=== PATIENT | male | born 1945 | race Caucasian/White ===

== ENCOUNTER 2021-02-01 10:32 | Outpatient (CLI) | payer BC, MEDICARE, SELFPAY ==
--- NOTE | ~2021-02-01 | XR_ITS ---
EXAMINATION: XR knee RT 3V DATE: 02/01/2021 11:13 INDICATION: Acute onset right knee pain TECHNIQUE: . Bearing AP, lateral and sunrise views of the right knee were obtained. COMPARISON: None. FINDINGS: Alignment is normal. No fracture. Subtle chondrocalcinosis in both the medial and lateral compartmen ts. There is mild joint space narrowing in the medial and patellofemoral compartments, both with smal l marginal osteophytes. Joint spaces in the medial and patellofemoral compartments are normal. Degene rative loose osteochondral body in the recess posterior to the intercondylar notch. Small right knee joint effusion. Enthesopathic ossicles in the distal quadriceps tendon. Few tiny arthroscopic calcifi cation along the popliteal artery. Soft tissues are unremarkable. IMPRESSION: 1. Chondrocalcinosis and mild medial and patellofemoral osteoarthritis. Reviewed, dictated and finalized at location A.
== END 2021-02-01 10:33 | disposition home or self-care (01) ==
LOC: ANHIMG 10:58
PROVIDERS: PCP Family Medicine; Visit Provider Nurse Practitioner Family
DX: M17.11 Unilateral primary osteoarthritis, right knee (principal)
CPT/HCPCS: 73562

== ENCOUNTER 2025-01-13 00:25 | Emergency (ER) | payer MEDICARE, SELFPAY ==
--- OUTSIDE RECORDS SUMMARY | 2008-12-07 19:00 | XMS_ITS | Continuity of Care Document ---
Author Organization [facility] Address [address] [place] [address] Phone Care Team Providers Care Technical Operations Vice President Name Role Phone Deonte Mahoney MD Unavailable Unavailable Advance Directives Directive Yes / No Effective Date File Name No Information Encounters Encounter Description Practice Location Reason(s) For Visit Diagnoses Date Provider Providers Copied on Encounter [facility], [address], [place], [place], [address], tel:[phone] [facility] No Information Sep-0 8-200 9 Trame Saint Anthony. [address] [facility], [address], [place], [place], [address] . tel:[phone] [employer], [address], [place], [place], [address], [place] tel:[phone] [facility] DEEP PHLEBITIS-LEG NECCELLULITIS OF ARMJOINT PAIN-SHLDER Apr-0 6-200 4 Trame Deonte. [address] [facility], [address], [place], [place], [address] . tel:[phone] [employer], [address], [place], [place], [address], [place] tel:[phone] [facility] PULM EMBOL/INFARCT NEC Oct-2 8-200 3 Trame Deonte. [address] [facility], [address], [place], [place], [address] . tel:[phone] [employer], [address], [place], [place], [address], tel:[phone] [facility] ROUTINE MEDICAL EXAM Edd-2 0-200 3 Trame [facility]. [address] [facility] [address], [place], [address] . tel: [phone] [facility], [address], [place], [place], [address], tel:[phone] [facility] CHRONIC SINUSITIS NOS 3 Maru Clemons. [address] [facility] [address], [place], [address] . tel: [phone] Family History Family Member Type Diagnosis Age At Onset No Information Payers Payer name Insurance type Covered alliance party ID Authoriza tion(s) No Information Social History Type Description Quantity Date Captured Comments Sex Male Smoking Status No Information Chief Complaint And Reason For Visit No Information Reason For Referral Reason For Referral No Information History Of Present Illness Encounter Date Complaint History Of Prese nt Illness No Information Functional Status Date Functional Assessmen t No Information Instructions Date Instruction Additional Infor mation No Information Assessments Type Assessment Date No Information Patient Care Teams Name Effective Dates (start - stop) Status Members No Information
--- OUTSIDE RECORDS SUMMARY | 2008-12-07 19:00 | XMS_ITS | Continuity of Care Document ---
Author Organization [facility] Address [address] [place] [address] Phone Care Team Providers Care Handle Rounder Operator Name Role Phone Deonte Mahoney MD Unavailable Unavailable Advance Directives Directive Yes / No Effective Date File Name No Information Encounters Encounter Description Practice Location Reason(s) For Visit Diagnoses Date Provider Providers Copied on Encounter [facility], [address], [place], [place], [address], tel:[phone] [facility] No Information Sep-0 8-200 9 Trame Lucinda. [address] [facility], [address], [place], [place], [address] . tel:[phone] [employer], [address], [place], [place], [address], [place] tel:[phone] [facility] DEEP PHLEBITIS-LEG NECCELLULITIS OF ARMJOINT PAIN-SHLDER Apr-0 6-200 4 Trame Deonte. [address] [facility], [address], [place], [place], [address] . tel:[phone] [employer], [address], [place], [place], [address], [place] tel:[phone] [facility] PULM EMBOL/INFARCT NEC Oct-2 8-200 3 Trame Deonte. [address] [facility], [address], [place], [place], [address] . tel:[phone] [employer], [address], [place], [place], [address], tel:[phone] [facility] ROUTINE MEDICAL EXAM Edd-2 0-200 3 Trame Lucinda. [address] [facility] [address], [place], [address] . tel: [phone] [facility], [address], [place], [place], [address], tel:[phone] [facility] CHRONIC SINUSITIS NOS 3 Maru Clemons. [address] [address], [place], [address] . tel: [phone] Family History Family Member Type Diagnosis Age At Onset No Information Payers Payer name Insurance type Covered constitution party ID Authoriza tion(s) No Information Social [...]
[2025-01-13 00:32] VITALS: BP 193/92; PULSE 71; RESP 18; TEMP 36.4; O2SAT 97
--- OUTSIDE RECORDS SUMMARY | 2025-01-13 00:33 | XMS_ITS | Clinical Summary ---
Author Organization [facility] Address [address] [place] [address] Care Team Providers Care Computer Peripheral Equipment Operator Name Role Phone Yanick Zee DO Primary Care Provider + Allergies No known active allergies Medications diphenhydrAMINE -APAP (TYLENOL PM) 25-500 MG Tab tablet Take 1 tablet by mouth nightly as needed for Sleep. Active tamsulosin (FLOMAX) 0.4 MG CapIndications: Benign prostatic hyperplasia with lower urinary tract symptoms, symptom details unspecified TAKE 1 CAPSULE EVERY DAY 90 capsule 3 5 Active traMADol (ULTRAM) 50 MG tabletIndicatio ns:Achilles tendinitis of left lower extremity TAKE 1 TABLET BY MOUTH EVERY 6 HOURS NEEDED 20 tablet 5 Active XARELTO 20 MG Tab tabletIndicatio ns:History of blood clots TAKE 1 TABLET (20 MG TOTAL) BY MOUTH DAILY. 90 tablet 3 5 Active XARELTO 20 MG Tab tabletIndicatio ns:History of blood clots Take 1 tablet (20 mg total) by mouth daily. 90 tablet 5 025 Discontinued Active Problems Problem Noted Date Diagnosed Date Morbid obesity due to excess calories 05/17/2023 Hyperlipidemia, unspecified hyperlipidemia type 05/12/2022 Elevated blood sugar 05/12/2022 History of blood clots 03/28/2022 Erectile dysfunction, unspecified erectile dysfu nction type 03/28/2022 Benign prostatic hyperplasia with lower urinary tract symptoms, symptom details unspecified 03/28/2022 BMI 36.0-36.9,adult 03/28/2022 JACK on CPAP 03/28/2022 Encounters Date Type Department Care Team Description 12/10/2024 Scan [facility] Scanned, [facility] 11/27/2024 Results Follow-Up [facility] [address] [address] Svitlana Drew APNP URINALYSIS, COMPREHENSIVE METABOLIC PANEL 11/25/2024 7:20 AM CDT Laboratory Only [facility] [address] [address] Yanick Zee DO 11/25/2024 Travel 11/12/2024 Scan [facility] INFO SR[facility]CS Scanned, [facility] from Last 3 Months Social History Tobacco Use Types Packs/Day Years Used Date Smoking Tobacco: Never Passive Smoke Exposure: Never Smokeless Tobacco: Never Tobacco Cessation:Counseling Given: No Alcohol Use Standard Drinks/Week Comments Not Currently 0 (1 standard drink = 0.6 oz pur e alcohol) very occasional PHQ-2 Answer Date Recorded Patient Health Questionnaire-2 Score 0 08/13/2024 Sex and Gender Information Value Date Recorded Sex Assigned at Male 05/15/2024 11:08 AM PRIVATE INVESTIGATOR Legal Sex Male 10:34 AM CDT Gender Identity Not on file Sexual Orientation Not on file Last Filed Vital Signs Vital Sign Reading Time Taken Comments Blood Pressure 138/72 08/13/2024 9:32 AM CDT Pulse 62 08/13/2024 9:05 AM CDT Temperature 36.9 C (98.4 F) 08/13/2024 9:05 AM CDT Respiratory Rate 16 08/13/2024 9:05 AM CDT Oxygen Saturation 98% 08/13/2024 9:05 AM CDT Inhaled Oxygen Concentration - - Weight 133.1 kg (293 lb 8 oz) 08/13/2024 9:05 AM CDT Height 193 cm (6' 4) 08/13/2024 9:05 AM CDT Body Mass Index 35.73 08/13/2024 9:05 AM CDT Plan of Treatment Health Maintenance Due Date Last Done Comments Annual Medicare Wellness Visit 02/28/2012 COVID-19 Vaccine (2023-2 5 season) 2024 Influenza Adult (#1) 2024 DTaP, Tdap and Td Vaccines ( 1 - Tdap) 08/13/2025 Postponed from 1966 (Patient Refused) Pneumococcal Vaccine: 50+ Years (1 of 1 - PCV) 08/13/2025 Postponed from 1997 (Patient Refused) RSV Immunization or 60+ Years (1 - 1-dose 75+ series) 08/13/2025 Postponed from 2022 (Patient Refused) Zoster Vaccines (1 of 2) 08/13/2025 Pos tponed from 1997 (Patient Refused) Colorectal Cancer Screening Colonoscopy (10 Years) Discontinued 07/28/2013, 07/28/2013, 07/28/2013 Hepatitis C Completed 03/28/2022 PHQ-2 (Physician [place]) Completed 08/13/2024 Meningococcal B Vaccine Aged Out No l onger eligible based on patient's age to complete this topic Meningococcal Vaccine Aged Out No belia giselle eligible based on patient's age to complete this topic RSV Immunizations Under 20 Months Aged Out No longer eligible b ased on patient's age to complete this topic Procedures Procedure Name Priority Date/Time Associated Diagnosis Comments COLLECTION VENOUS BLOOD VENIPUNCTURE Routine 11/25/2024 7:35 AM CDT Hematuria Elevated liver enzymes Decreased renal function COMPREHENSIVE METABOLIC PANEL Routine 11/25/2024 7:34 AM CDT Elevated liver enzymes Decreased renal function URINALYSIS, AUTO, COMPLETE Routine 11/25/2024 7:34 AM CDT Hematuria HEPATITIS C ANTIBODY Routine 03/28/2022 8:56 AM PRIVATE INVESTIGATOR Annual physical exam Need for hepatitis C screening test COLONOSCOPY GENERIC (SCAN ORDER) 07/28/2013 from Last 3 Months or Most Recently Relevant to Health Maintenance Results * (ABNORMAL) URINALYSIS (11/25/2024 7:34 AM CDT) COLOR (U) YELLOW 11/25/2024 3:24 PM CDT [facility] TRANSPARENCY CLEAR CLEAR 11/25/2024 3:24 PM CDT [facility] SPECIFIC GRAVITY (U) 1.020 1.003 - 1.040 11/25/2024 3:24 PM CDT [facility] U PH 5.5 5.0 - 9.0 11/25/2024 3:24 PM CDT [facility] PROTEIN RANDOM (U) NEGATIVE NEGATIVE 11/25/2024 3:24 PM CDT [facility] GLUCOSE (U) NEGATIVE NEGATIVE 11/25/2024 3:24 PM CDT [facility] KETONES MG/DL (U) NEGATIVE NEGATIVE 11/25/2024 3:24 PM CDT [facility] BILIRUBIN (U) NEGATIVE NEGATIVE 11/25/2024 3:24 PM CDT [facility] BLOOD (U) 1+(A) NEGATIVE 11/25/2024 3:24 PM T [facility] UROBILINOGEN 0.2 0.0 - 2.0 EU/DL 11/25/2024 3:24 PM CDT [facility] NITRITES NEGATIVE NEGATIVE 11/25/2024 3:24 PM T [facility] LEUKOCYTES (U) NEGATIVE NEGATIVE 11/25/2024 3:24 PM CDT [facility] RBC/HPF 0-3 0 - 3 /HPF 11/25/2024 3:24 PM T [facility] WBC/HPF 0-3 0 - 3 /HPF 11/25/2024 3:24 PM T [facility] EPI/HPF 0-3 /HPF 11/25/2024 3:24 PM CDT [facility] BACTERIA (U) NONE SEEN NONE SEEN 11/25/2024 3:24 PM T [facility] URINE SPECIMEN OBTAINED BY CLEAN CATCH PROCEDURE / Unknown 11/25/2024 7:34 AM CDT Svitlana JOHN URINE ORDERABLES Final Resu lt -[facility] [address] [place] [address], * (ABNORMAL) COMPREHENSIVE METABOLIC PANEL (11/25/2024 7:34 AM CDT) SODIUM S/P/B 138 136 - 145 MMOL/L 11/25/2024 3:09 PM CDT -[facility] POTASSIUM S/P/B 4.4 3.5 - 5.1 MMOL/L 11/25/2024 3:09 PM CDT [facility] CHLORIDE S/P/B 102 98 - 107 MMOL/L 11/25/2024 3:09 PM CDT [facility] CO2 25.8 21 - 32 MMOL/L 11/25/2024 3:09 PM CDT [facility] GLUCOSE 94 70 - 99 MG/DL 11/25/2024 3:09 PM CDT [facility] BUN 17 7 - 18 MG/DL 11/25/2024 3:09 PM CDT [facility] CREATININE S/P/B 1.31(H) 0.70 - 1.30 MG/DL 11/25/2024 3:09 PM CDT [facility] CALCIUM S/P/B 9.3 8.4 - 10.5 MG/DL 11/25/2024 3:09 PM CDT -[facility] BILIRUBIN TOTAL S/P/B 0.6 0.2 - 1.0 MG/DL 11/25/2024 3:09 PM CDT [facility] ALKALINE PHOSPHATASE S/P/B 57 45 - 115 U/L 11/25/2024 3:09 PM CDT [facility] AST 34 15 - 37 U/L 11/25/2024 3:09 PM CDT [facility] ALT 56 16 - 63 U/L 11/25/2024 3:09 PM CDT [facility] TOTAL PROTEIN S/P/B 7.3 6.4 - 8.2 G/DL 11/25/2024 3:09 PM CDT [facility] ALBUMIN S/P/B 4.0 3.4 - 5.0 G/DL 11/25/2024 3:09 PM CDT [facility] ANION GAP 10.2 5 - 15 MMOL/L 11/25/2024 3:09 PM CDT [facility] Comment:REFERENCE RANGE NOT ESTABLISHED OSMOLALITY (CALC) 287 MOSM/KG 025 3:09 PM CDT [facility] Comment:REFERENCE RANGE NOT ESTABLISHED GFR ESTIMATE 56(L) >90 ML/MIN/1. 73 M2 11/25/2024 3:09 PM CDT [facility] GFR NOTES GFR REFERENCE S: 11/25/2024 3:09 PM CDT [facility] Comment: THE ESTIMATED GFR IS CALCULATED USING THE 2020 CKD-EPI EQUATION. THE FOLLOWING CATEGORIES FOR GRADING RENAL FUNCTION ARE RECOMMENDED BY THE INTERNATIONAL SOCIETY OF NEPHROLOGY (KDIGO 2012 CLINICAL PRACTICE GUIDELINE). G1,NORMAL OR HIGH: >89 ml/min/1.73 m2 G2,MILDLY DECREASED: 60-89 ml/min/1.73 m2 G3A,MILDLY TO MODERATELY DECREASED: 45-59 ml/min/1.73 m2 G3B,MODERATELY TO SEVERELY DECREASED: 30-44 ml/min/1.73 m2 G4,SEVERELY DECREASED: 15-29 ml/min/1.73 m2 G5,KIDNEY FAILURE: <15 ml/min/1.73 m2 11/25/2024 7:34 AM CDT us Svitlana JOHN LABORATORY Final Resul t [facility] [place] [address] [place] [address], * HEPATITIS C ANTIBODY (03/28/2022 8:56 AM PRIVATE INVESTIGATOR) HEPATITIS C AB NON-REACTI VE NON-REACT MARIAH 03/28/2022 10:04 PM PRIVATE INVESTIGATOR [facility] Comment: ANTIBODIES TO HCV NOT DETECTED. DOES NOT EXCLUDE THE POSSIBILITY OF EXPOSURE TO HCV. 03/28/2022 8:56 AM PRIVATE INVESTIGATOR us Yanick Zee DO LABORATORY Final Re sult [facility] [address] [place] [address], [place] [phone] [id number] * COLONOSCOPY GENERIC (07/28/2013) 07/28/2013 us Doc [facility] Scanned SCANNING Final Resu lt from Last 3 Months or Most Recently Relevant to Health Maintenance Insurance MEDICARE Care Teams Computer Peripheral Equipment Operator Relationship Specialty Start Date End Date Yanick Zee DO [address] [place], [place] [phone] PCP - General FAMILY PRACTICE 01/26/22
--- OUTSIDE RECORDS SUMMARY | 2025-01-13 00:33 | XMS_ITS | Encounter Summary ---
Author Organization [facility] Address [address] [place] [address] Care Team Providers Care Nursery Teacher Name Role Phone Yanick Zee DO Primary Care Provider + Encounter Details Date Type Department Care Team (Latest Contact Info) Description 11/27/2024 Results Follow-Up [facility] Family & Internal Medicine [facility] [address] [place] [address] Svitlana Drew APNP [address] [place] [address] URINALYSIS, COMPREHENSIVE METABOLIC PANEL Social History Tobacco Use Types Packs/Day Years Used Date Smoking Tobacco: Never Passive Smoke Exposure: Never Smokeless Tobacco: Never Alcohol Use Standard Drinks/Week Comments Not Currently 0 (1 standard drink = 0.6 oz pur e alcohol) very occasional PHQ-2 Answer Date Recorded Patient Health Questionnaire-2 Score 0 08/13/2024 Sex and Gender Information Value Date Recorded Sex Assigned at Male 05/15/2024 11:08 AM SASH MAKER Legal Sex Male 10:34 AM CDT Gender Identity Not on file Sexual Orientation Not on file documented as of this encounter Progress Notes * Yanick Zee DO - 11/27/2024 9:31 AM CDT Liver enzymes improved but blood is still noted in urine. Please refer to urology. Can recheck labswith annual labs. documented in this encounter Plan of Treatment Not on file documented as of this encounter Visit Diagnoses Not on filedocumented in this encounter Care Teams Nursery Teacher Relationship Specialty Start Date End Date Yanick Zee DO [address] [place] [address] PCP - General FAMILY PRACTICE 01/26/22 documented as of this encounter
--- OUTSIDE RECORDS SUMMARY | 2025-01-13 00:33 | XMS_ITS | Clinical Summary ---
Author Organization [facility] Address [address] [place] [address] Care Team Providers Care Manager Distribution Center Name Role Phone Yanick Zee Primary Care Provide r Allergies No known active allergies Medications Xarelto 20 mg tablet Take 1 tablet (20 mg total) by mouth daily 01/09/2024 Active tamsulosin (FLOMAX) 0.4 mg extended release capsule Take 1 capsule (0.4 mg total) by mouth daily 12/19/2023 Active diphenhydrAMINE -acetaminophen (TYLENOL PM) 25-500 mg tablet Take 1 tablet by mouth nightly as needed Active Active Problems Problem Noted Date Diagnosed Date Morbid obesity due to excess calories 05/17/2023 Elevated blood sugar 05/12/2022 Hyperlipidemia 05/12/2022 Benign prostatic hyperplasia with lower urinary tract symptoms 03/28/2022 Erectile dysfunction 03/28/2022 JACK on CPAP 03/28/2022 Medical History Medical History Date Comments Joint pain Muscle tenderness Joint swelling Family History Medical History Relation Name Comments Blood Clot Brother Relation Name Status Comments Brother Father Mother Social History Tobacco Use Types Packs/Day Years Used Date Smoking Tobacco: Never Smokeless Tobacco: Never Tobacco Cessation:Counseling Given: Not Answered AUDIT-C Answer Date Recorded Q1: How often do you have a drink containing alc ohol? 2-3 times a week 02/19/2024 Q2: How many drinks containi ng alcohol do you have on a typical day when you are drinking? 1 or 2 02/19/2024 Q3: How often do you have si x or more drinks on one occasion? Never 02/19/2024 PHQ-2 Answer Date Recorded PHQ-2 Total Score (If total score is 3 or more points, staff should administer the PHQ-9) 0 02/19/2024 Sex and Gender Information Value Date Recorded Sex Assigned at Not on file Legal Sex Male 5:35 PM PURSE FRAMER Gender Identity Not on file Sexual Orientation Not on file Obstetrics History Last Filed Vital Signs Vital Sign Reading Time Taken Comments Blood Pressure 142/84 02/19/2024 12:51 PM PURSE FRAMER Pulse 60 02/19/2024 12:51 PM PURSE FRAMER Temperature 36.8 C (98.3 F) 02/19/2024 12:51 PM PURSE FRAMER Respiratory Rate - - Oxygen Saturation 96% 02/19/2024 12: 51 PM PURSE FRAMER Inhaled Oxygen Concentration - - Weight 133.2 kg (293 lb 9.6 oz) 024 12:51 PM PURSE FRAMER Height - - Body Mass Index - - Plan of Treatment Health Maintenance Due Date Last Done Comments Fall Risk Assessment 1945 Hepatitis C Screening 1945 DTaP/Tdap/Td Vaccine (1 - Tdap) 1958 Hepatitis B Screening 1965 Pneumococcal vaccine 65+ (1 of 1 - PCV) 1997 Zoster Vaccine (1 of 2) 1997 Well Visit 65+ 02/28/2012 Influenza Vaccine (#1) 2024 Depression Screening 02/18/2025 02/19/2024 Insurance [employer] ACCESS MEDICARE [employer] CHOICE MEDICARE PPO Care Teams Manager Distribution Center Relationship Specialty Start Date End Date Yanick Zee DO [address] [place] [id number] PCP - General Family Medicine 06/08/23
--- NOTE | 2025-01-13 00:35 | PC.NURSE ---
Pts dressing from home removed on arrival, noted large amt of blood loss, area of Lt inner ankle still bleeding when dressing removed, direct pressure applied to vein site, tourniquet applied and CAT applied to help slow bleeding.
--- NOTE | 2025-01-13 00:38 | ED_ITS ---
HPI - Skin/Abscess/Foreign Bdy General Chief complaint: Wound/Laceration Stated complaint: bleeding foot Time Seen by Provider: 01/13/25 00:37 Source: patient Mode of arrival: ambulatory Limitations: no limitations History of Present Illness HPI narrative: Patient is 79-year-old male with a arterial bleed in his left ankle area medial aspect tonight. Patient is on Xarelto for a prior DVT. Patient presents with a pressure dressing. Patient was picking at a scab and the bleed started and would not stop bleeding. complaint: other (Scab on the left medial ankle the size of a pencil eraser) Onset (ago): hour(s) (Three) Tetanus up to date: unsure Location: LLE Severity: moderate Severity scale (1-10): 3 Quality: aching Pain Consistency: constant Relieving factors: other (Pressure dressing) Exacerbating factors: palpation and movement Context: other (Patient was picking at a scab on his ankle of the left medial aspect and a arterial bleeder started to start bleeding while on Xarelto) Associated symptoms: denies other symptoms Treatments prior to arrival: bandages (Pressure dressing) Related Data Allergies Allergy/AdvReac Type Severity Reaction Status Date / Time No Known Allergies Allergy Verified 01/13/25 00:54 Review of Systems 2 Review of Systems: All systems reviewed & are unremarkable except as noted in HPI and below Constitutional: Constitutional: Reports no additional constitutional complaints Eyes: Eyes: Reports no additional eye complaints ENT: Reports system reviewed and no additional complaints, except as documented Cardiovascular: Cardiovascular: Reports no additional cardiovascular complaints Respiratory: Respiratory: Reports no additional respiratory complaints Gastrointestinal: Gastrointestinal: Reports no additional gastrointestinal complaints Genitourinary: Genitourinary: Reports no additional male genitourinary complaints Musculoskeletal: Musculoskeletal: Reports no additional musculoskeletal complaints Integumentary/Breasts: Skin/Breast: Reports system reviewed and no additional complaints, except as docu Neurologic: Reports system reviewed and no additional complaints, except as documented Psychiatric: Psychiatric: Reports no additional psychiatric complaints Endocrine: Endocrine: Reports no additional endocrine complaints Hematologic/Lymphatic: Hematologic/Lymphatic: Reports no additional hematologic/lymphatic complaints Allergic/Immunologic: Allergic/Immunologic: Reports no additional allergic/immunologic complaints PMFSH Past Medical History Medical History Polymyalgia rheumatica (~04/2021) Hemorrhage HLD (hyperlipidemia) Asthma Hearing loss Pulmonary embolism Effusion, right knee Right knee DJD Right knee pain Obesity Obstructive sleep apnea H/O deep venous thrombosis IFG (impaired fasting glucose) CKD (chronic kidney disease), stage III Low kidney function Elevated liver enzymes Mixed hyperlipidemia Elevated blood pressure reading Surgical History Surgical History History of back surgery per patient questionnaire H/O shoulder surgery Rotator Cuff 2004 per patient questionnaire Family History Family History Mother Patient's mother is , Onset Age: 83 Father Patient's father is , Onset Age: 89 Sibling Family history of sleep apnea Other Arthritis HLD (hyperlipidemia) Heart disease Social History Social History Smoking status: Never smoker Second hand tobacco smoke exposure: No Alcohol intake: never Substance use: never Living arrangements: with family Occupation/Education: retired Gender identity (if verbalized by the patient): Male Sexual Orientation (if Verbalized by the Patient): Straight or Heterosexual Exam 2 Const: General: healthy appearing Nutritional Appearance: well nourished Orientation/consciousness: patient oriented x3 HENMT: Head: normal to inspection Ears: external ears normal F kirill/Nose/Sinus: Normal external nose present Eyes: Conjunctivae: conjunctivae normal Pupils: Equal, round and reactive pupils present EOM: EOMs intact bilaterally Neck: Neck: normal visual inspection Chest: Chest palpation & inspection: normal inspection of the chest Resp: Effort & Inspection: normal respiratory effort and not labored A uscultation: clear to auscultation bilaterally and no crackles Cardio: Rate: regular rate Rhythm: regular rhythm Heart sounds: no murmurs GI: Inspection: non-distended Auscultation: normal bowel sounds : General: Yes bladder normal to palpation Back/Spine/Pelvis: Back: no CVA tenderness Skin: General skin exam: normal color Rashes: no rashes Wounds: no wounds Other: Patient proceeded to get somewhat pale after attempting to stop bleeding for 10- 15 minutes in the emergency room Neuro: General: patient oriented x3, moves all extremities and no meningeal signs Extrem: General: abnormal to inspection (Arterial bleeding of the left ankle medial aspect briskly) and no clubbing, cyanosis or edema Psych: Mental Status: mental status grossly normal Affect: normal affect Attitude: cooperative Course Vital Signs Vital signs: Vital Signs Temperature 36.4 C 01/13/25 00:32 Pulse Rate 71 01/13/25 00:32 Respiratory Rate 18 01/13/25 00:32 Blood Pressure 193/92 H 01/13/25 00:32 Pulse Oximetry 97 01/13/25 00:32 Oxygen Delivery Room Air 01/13/25 00:32 Temperature 36.4 C 01/13/25 00:32 Pulse Rate 71 01/13/25 03:09 Respiratory Rate 20 01/13/25 03:09 Blood Pressure 140/88 01/13/25 03:09 Pulse Oximetry 94 01/13/25 03:09 Oxygen Delivery Room Air 01/13/25 03:09 Procedures Other Procedure Procedure 1: Other Procedure: Arterial bleed hemostasis: Area cleaned with chlorhexidine, tourniquet placed on the left lower extremity, heat cautery attempted, silver nitrate attempted multiple times, suture ligation attempted with better results and decreased arterial bleed to minimal bleeding to no bleeding; patient tolerated procedures well and no complications MDM - Skin/Abscess/Foreign Bdy MDM Narrative Medical decision making narrative: Patient is a 79-year-old male with a arterial bleed of the left lower extremity. We will tourniquet and an attempt to close or ligate this vessel for hemostasis. We will consult with Trauma Services and vascular surgery. Check H&H. Check coags. I discussed the case with vascular surgery and they said continue with stitching until the bleeding stops and hold his Xarelto for 1-2 days and have it followed up for review in 1-2 days. Lab Data Attestation: I reviewed the patient's lab results. 01/13/25 01:45 Labs: Lab Results 01/13/25 Range/Units 01:45 WBC 6.5 (4.8-10.8) K/mm3 RBC 4.29 L (4.70-6.10) M/mm3 Hgb 13.0 (12.4-15.3) g/dL Hct 39.6 (37.0-46.0) % MCV 92.3 (78.0-102.0) fL MCH 30.3 (27.0-31.0) pg MCHC 32.8 (32-36) g/dL RDW 13.2 (11.6-14.4) % Plt Count 181 (150-420) K/mm3 MPV 9.6 (8.7-11.0) fl Immature Gran % (Auto) 1.4 H (0.0-0.0) % Neut % (Auto) 58.9 (50.0-70.0) % Lymph % (Auto) 25.6 (18.0-42.0) % [place] % (Auto) 10.0 (2.0-11.0) % Eos % (Auto) 3.5 (1.0-6.0) % Baso % (Auto) 0.6 (0.0-1.0) % Lymph # (Auto) 1.67 (1.10-4.50) K/mm3 [place] # (Auto) 0.65 (0.10-0.90) K/mm3 Eos # (Auto) 0.23 (0.02-0.50) K/mm3 Baso # (Auto) 0.04 (0.00-0.10) K/mm3 Abs Immat Gran (auto) 0.09 H (0.00-0.00) K/mm3 Absolute Neuts (auto) 3.85 (1.70-7.20) K/mm3 Absolute Nucleated RBC 0.00 (0.00-0.00) K/mm3 Nucleated RBC % 0.0 (0-0.0) % PT 11.9 (9.50-12.1) Seconds INR 1.1 APTT 31.1 H (23.9-30.70) Sec Critical Care Time Critical Care Time Critical Care Time: Yes Total Critical Care Time: 40 Discharge Plan Discharge Clinical Impression: Arterial hemorrhage Patient Disposition: Home Condition: Stable Instructions: Antibiotic Form Additional Instructions: Please follow-up with the primary doctor in the next week. Change dressing in 24 hours. Then you can change them every day. Stitches need to be removed in 10 days. Come back to the ER with any further bleeding. Hold Xarelto for 2 days. Patient Language: Kosovan Prescriptions: No Action Xarelto 20 mg tablet 20 mg PO DAILY Qty: 90 2RF Rx Instructions: TAKE 1 BY MOUTH with evening meal prednisone 5 mg tablet 5 mg PO TID Qty: 90 1RF Follow-up/Referrals: Saadia,DO Yanick [Primary Care Provider] Time of Disposition: 02:51
[2025-01-13] MEDS: LIDOCAINE 1% LOCAL INJ 10 ML VIAL 5 ML INFILTRATE (00:40)
--- OUTSIDE RECORDS SUMMARY | 2025-01-13 01:17 | XMS_ITS | Encounter Summary ---
Author Organization [facility] Address [address] [place] [address] Care Team Providers Care Accounts Receivable Processor Name Role Phone Yanick Zee DO Primary Care Provider + Encounter Details Date Type Department Care Team (Latest Contact Info) Description 11/27/2024 Results Follow-Up [facility] Family & Internal Medicine [facility] [address] [place] [address] Svitlana Drew APNP [address] [place] [address] URINALYSIS, COMPREHENSIVE METABOLIC PANEL Social [...] Sex Assigned at Male 05/15/2024 11:08 AM WEDDING MAKEUP ARTIST Legal Sex Male 10:34 AM CDT Gender [...] on filedocumented in this encounter Care Teams Accounts Receivable Processor Relationship Specialty Start Date End Date Yanick Zee DO [address] [place] [id number] PCP - General FAMILY PRACTICE 01/26/22 documented as of this encounter
--- OUTSIDE RECORDS SUMMARY | 2025-01-13 01:17 | XMS_ITS | Clinical Summary ---
Author Organization [facility] Address [address] [place] [address] Care Team Providers Care Account Management Assistant Name Role Phone Yanick Zee Primary Care [...] on file Legal Sex Male 5:35 PM WHEELCHAIR VAN OPERATOR FIRST RESPONDER Gender Identity Not on file Sexual Orientation Not on file Obstetrics History Last Filed Vital Signs Vital Sign Reading Time Taken Comments Blood Pressure 142/84 02/19/2024 12:51 PM WHEELCHAIR VAN OPERATOR FIRST RESPONDER Pulse 60 02/19/2024 12:51 PM WHEELCHAIR VAN OPERATOR FIRST RESPONDER Temperature 36.8 C (98.3 F) 02/19/2024 12:51 PM WHEELCHAIR VAN OPERATOR FIRST RESPONDER Respiratory Rate - - Oxygen Saturation 96% 02/19/2024 12: 51 PM WHEELCHAIR VAN OPERATOR FIRST RESPONDER Inhaled Oxygen Concentration - - Weight 133.2 kg (293 lb 9.6 oz) 024 12:51 PM WHEELCHAIR VAN OPERATOR FIRST RESPONDER Height - - Body Mass Index - [...] (#1) 2024 Depression Screening 02/18/2025 02/19/2024 Insurance [employer] ACCESS MEDICARE [employer] CHOICE MEDICARE PPO Care Teams Account Management Assistant Relationship Specialty Start Date End Date Yanick Zee DO [address] [place] [id number] PCP - General Family Medicine 06/08/23
--- OUTSIDE RECORDS SUMMARY | 2025-01-13 01:17 | XMS_ITS | Clinical Summary ---
Author Organization [facility] Address [address] [place] [address] Care Team Providers Care Auger Machine Offbearer Name Role Phone Yanick Zee DO Primary [...] Scanned, Doc Med Group 11/27/2024 Results Follow-Up [facility] Family & Internal Medicine [address] [address] Svitlana Drew APNP URINALYSIS, COMPREHENSIVE METABOLIC PANEL 11/25/2024 7:20 AM CDT Laboratory Only [facility] Family & Internal Medicine [address] [phone] Yanick Zee DO 11/25/2024 Travel 11/12/2024 Scan [...] Sex Assigned at Male 05/15/2024 11:08 AM SPACE SCHEDULER Legal Sex Male 10:34 AM CDT Gender [...] 07/28/2013 Hepatitis C Completed 03/28/2022 PHQ-2 (Physician [place]) Completed 08/13/2024 Meningococcal B Vaccine Aged Out [...] HEPATITIS C ANTIBODY Routine 03/28/2022 8:56 AM SPACE SCHEDULER Annual physical exam Need for hepatitis C screening test COLONOSCOPY GENERIC (SCAN ORDER) 07/28/2013 from Last 3 Months or Most Recently Relevant to Health Maintenance Results * (ABNORMAL) URINALYSIS (11/25/2024 7:34 AM CDT) COLOR (U) YELLOW 11/25/2024 3:24 PM CDT [facility] TRANSPARENCY CLEAR CLEAR 11/25/2024 3:24 PM CDT [facility] SPECIFIC GRAVITY (U) 1.020 1.003 - 1.040 11/25/2024 3:24 PM CDT [facility] U PH 5.5 5.0 - 9.0 11/25/2024 3:24 PM CDT [facility] PROTEIN RANDOM (U) NEGATIVE NEGATIVE 11/25/2024 3:24 PM CDT [facility] GLUCOSE (U) NEGATIVE NEGATIVE 11/25/2024 3:24 PM CDT [facility] KETONES MG/DL (U) NEGATIVE NEGATIVE 11/25/2024 3:24 PM CDT [facility] BILIRUBIN (U) NEGATIVE NEGATIVE 11/25/2024 3:24 PM CDT [facility] BLOOD (U) 1+(A) NEGATIVE 11/25/2024 3:24 PM T [facility] UROBILINOGEN 0.2 0.0 - 2.0 EU/DL 11/25/2024 3:24 PM CDT [facility] NITRITES NEGATIVE NEGATIVE 11/25/2024 3:24 PM T [facility] LEUKOCYTES (U) NEGATIVE NEGATIVE 11/25/2024 3:24 PM CDT [facility] RBC/HPF 0-3 0 - 3 /HPF 11/25/2024 3:24 PM T [facility] WBC/HPF 0-3 0 - 3 /HPF 11/25/2024 3:24 PM T [facility] EPI/HPF 0-3 /HPF 11/25/2024 3:24 PM CDT [facility] BACTERIA (U) NONE SEEN NONE SEEN 11/25/2024 3:24 PM T [facility] URINE SPECIMEN OBTAINED BY CLEAN CATCH PROCEDURE / Unknown 11/25/2024 7:34 AM CDT Svitlana JOHN URINE ORDERABLES Final Resu lt -[facility] [address] [place] [address], * (ABNORMAL) COMPREHENSIVE METABOLIC PANEL (11/25/2024 7:34 AM CDT) SODIUM S/P/B 138 136 - 145 MMOL/L 11/25/2024 3:09 PM CDT -[facility] POTASSIUM S/P/B 4.4 3.5 - 5.1 MMOL/L 11/25/2024 3:09 PM CDT [facility] CHLORIDE S/P/B 102 98 - 107 MMOL/L 11/25/2024 3:09 PM CDT [facility] CO2 25.8 21 - 32 MMOL/L 11/25/2024 3:09 PM CDT [facility] GLUCOSE 94 70 - 99 MG/DL 11/25/2024 3:09 PM CDT [facility] BUN 17 7 - 18 MG/DL 11/25/2024 3:09 PM CDT [facility] CREATININE S/P/B 1.31(H) 0.70 - 1.30 MG/DL 11/25/2024 3:09 PM CDT [facility] CALCIUM S/P/B 9.3 8.4 - 10.5 MG/DL 11/25/2024 3:09 PM CDT [facility] BILIRUBIN TOTAL S/P/B 0.6 0.2 - 1.0 MG/DL 11/25/2024 3:09 PM CDT [facility] ALKALINE PHOSPHATASE S/P/B 57 45 - 115 U/L 11/25/2024 3:09 PM CDT [facility] AST 34 15 - 37 U/L 11/25/2024 3:09 PM CDT [facility] ALT 56 16 - 63 U/L 11/25/2024 3:09 PM CDT [facility] TOTAL PROTEIN S/P/B 7.3 6.4 - 8.2 G/DL 11/25/2024 3:09 PM CDT [facility] ALBUMIN S/P/B 4.0 3.4 - 5.0 G/DL 11/25/2024 3:09 PM CDT [facility] ANION GAP 10.2 5 - 15 MMOL/L 11/25/2024 3:09 PM CDT [facility] Comment:REFERENCE RANGE NOT ESTABLISHED OSMOLALITY (CALC) 287 MOSM/KG 025 3:09 PM CDT [facility] Comment:REFERENCE RANGE NOT ESTABLISHED GFR ESTIMATE 56(L) >90 ML/MIN/1. 73 M2 11/25/2024 3:09 PM CDT [facility] GFR NOTES GFR REFERENCE S: 11/25/2024 3:09 PM CDT [facility] Comment: THE ESTIMATED GFR IS [...] [facility] Final Resul t [facility] [address] [facility] [place] [address], * HEPATITIS C ANTIBODY (03/28/2022 8:56 AM SPACE SCHEDULER) HEPATITIS C AB NON-REACTI VE NON-REACT MARIAH 03/28/2022 10:04 PM SPACE SCHEDULER [facility] Comment: ANTIBODIES TO HCV NOT DETECTED. DOES NOT EXCLUDE THE POSSIBILITY OF EXPOSURE TO HCV. 03/28/2022 8:56 AM SPACE SCHEDULER us Yanick Zee DO LABORATORY Final Re sult [facility] [address] [place] [address], [place] [phone] * COLONOSCOPY GENERIC (07/28/2013) 07/28/2013 us [facility] Scanned SCANNING Final Resu lt from Last 3 Months or Most Recently Relevant to Health Maintenance Insurance MEDICARE Care Teams Auger Machine Offbearer Relationship Specialty Start Date End Date Yanick Zee DO [address] [place], [place] [phone] PCP - General FAMILY PRACTICE 01/26/22
[2025-01-13] MEDS: SODIUM CHLORIDE 0.9% IV 500 ML 999 ML IV CONT (01:21)
--- NOTE | 2025-01-13 01:30 | PC.NURSE ---
Lt leg elevate w/ pressure dressing in place. Per vascular consult at [facility], watch pt w/ dressing in place and re-evaluate. No bleeding noted through pressure dressing that was applied. Pt informed on POC.
[2025-01-13 01:35] VITALS: BP 168/73; PULSE 60; RESP 18; O2SAT 97
[2025-01-13 01:56] LABS: Hematocrit 39.6 % (37.0-46.0); Hemoglobin 13.0 g/dL (12.4-15.3); Immature Granulocyte Percent A 1.4 % (0.0-0.0); Lymphocytes Absolute Auto 1.67 K/mm3 (1.10-4.50); Mean Corpuscular HGB Conc 32.8 g/dL (32-36); Mean Corpuscular Hemoglobin 30.3 pg (27.0-31.0); Mean Corpuscular Volume 92.3 fL (78.0-102.0); Nucleated Red Blood Cells Absolute Auto 0.00 K/mm3 (0.00-0.00); Nucleated Red Blood Cells Perc 0.0 % (0-0.0); Platelet Count Result 181 K/mm3 (150-420); Red Blood Count 4.29 M/mm3 (4.70-6.10); White Blood Count 6.5 K/mm3 (4.8-10.8)
[2025-01-13 02:03] LABS: INR 1.1; Partial Thromboplastin Time 31.1 Sec (23.9-30.70); Prothrombin Time 11.9 Seconds (9.50-12.1)
[2025-01-13 03:09] VITALS: BP 140/88; PULSE 71; RESP 20; O2SAT 94
== END 2025-01-13 03:09 | disposition home or self-care (01) ==
PROVIDERS: Emergency Provider Emergency Medicine; PCP Student in an Organized Health Care Education/Training Program
DX: R58 Hemorrhage, not elsewhere classified (principal); N18.30 Chronic kidney disease, stage 3 unspecified; E78.2 Mixed hyperlipidemia; Z86.718 Personal history of other venous thrombosis and embolism
CPT/HCPCS: 12001; 36415; 85025; 85610; 85730; 99283; J2003; J7040